=== PATIENT | female | born 1950 | race Caucasian/White ===

== ENCOUNTER → 2016-11-07 | Outpatient (CLI) | payer MEDICARE, MEDICAID ==
[~2016-11-07] MED LIST: ASPIRIN EC81 MG PO; CELEBREX200 MG PO; CELEXA DPS20 MG PO; COLACE-DPS100 MG PO; DESYREL-DPS50 MG PO; DULCOLAX-DPS10 MG PR; DULCOLAX-DPS5 MG PO; FEOSOL-DPS325 MG PO; FLEXERIL-DPS10 MG PO; MAALOX DPS30 ML PO; MILK OF MAGNESI10 ML PO; MIRALAX PACKET17 GM PO; NEURONTIN DPS100 MG PO; OXY IR DPS5 MG PO; SENOKOT S1 TAB PO; TOPROL XL25 MG PO; TYLENOL DPS325 MG PO; ULTRAM DPS50 MG PO; VITAMIN D1000 UNI1 PO; XARELTO10 MG PO
== END | disposition home or self-care (01) ==
LOC: PTH.S 10:29
DX: Z01.818 Encounter for other preprocedural examination (principal); I10 Essential (primary) hypertension

== ENCOUNTER → 2016-11-11 | Outpatient (CLI) | payer MEDICARE, MEDICAID ==
--- NOTE | ~2016-11-11 | CST ---
Cardiac Perfusion Imaging Demographics Patient Name CHRIS Benavides Gender Female Patient Number [id number] Race Visit Number [id number] Ethnicity Corporate ID Room Number Accession Number [id number] Height 64 inches Date of 1950 Weight 170 pounds Age 66 year(s) BSA 1.83 m Referring Physician Ignacio HUNT BMI 29.18 kg/m Interpreting Physician [facility] Jeremy Zamora Date of study 11/11/2016 King Khris Vu MD Supervising MD/MLP King Khris SANCHEZ Technologist Katia Juarez Ordering Physician [facility] Carly PAC Stress chemistry quality control technician Stress ECG Reading [facility] Nurse Chaim Evans Physician King Khris Powers The procedure was explained in detail to the patient. Risks, complications and alternative treatments were reviewed. Written consent was obtained. Medications Reviewed with Patient prior to Procedure. Procedure Procedure Type: Nuclear Stress Test:Cardiac Study SF Procedure Start time: 11/11/2016 07:45 Indications: Pre surgical clearance and Chest pain. Risk Factors The patient risk factors include:hypertension and prior GA . Conclusions Summary Perfusion Images: The overall quality of the study is good. Left ventricular cavity is noted to be normal on the stress and normal on the rest images. There is no evidence of abnormal lung activity. The right ventricle is not visualized an cannot be assessed. Stress SPECT images reveal a medium sized area of moderate decreased isotope uptake involving the entire inferior wall and apex of the left ventricle. . Rest SPECT images reveal a medium sized area of moderate decreased isotope uptake of the entire inferior wall and apex . Gated SPECT imaging reveals normal thickening and normal wall motion. Overall left ventricular ejection fraction was calculated to be normal at 51%. Impression ECG portion of the stress test is clinically negative for ischemia by diagnostic criteria. Myocardial perfusion imaging is moderately abnormal. The images reveal a fixed defect in the entire inferior wall and apex consistent with old infarct vs. attenuation. Overall left ventricular systolic function was normal. This is a low risk stress test. There are no previous studies for comparison . Stress Protocols Resting ECG Normal sinus rhythm. Nonspecific ST-T wave changes. Resting HR:68 bpm Resting BP:150/74 mmHg Stress Protocol:Pharmacologic Predicted HR: 154 bpm Test duration: 06:00 min Reason for termination:Infusion complete ECG Findings Normal sinus rhythm. Non specific T-wave changes. Symptoms No symptoms with Lexiscan infusion. Complications Procedure complication: None. Stress Interpretation Appropriate hemodynamic response to Lexiscan. No significant ST-T wave changes with Lexiscan. ECG portion is negative for ischemia by diagnostic criteria. Imaging Results Summed scores - Summed stress score: 11 - Summed rest score: 5 - Summed difference score: 6 Stress ejection Ejection fraction:51 % EDV :119 ml ESV :58 ml Stroke volume :61 ml LV mass :139 gr Imaging Protocols Rest Stress Isotope:Tc99m Myoview IV Isotope: Tc99m Myoview IV Isotope dose:10.5 mCi Isotope dose:31.8 mCi Date:11/11/2016 07:00 Date:11/11/2016 07:45 Technique: SPECT Technique: Gated Supine SPECT Supine Scan Time:30 minutes post injection Scan Time:45-60 minutes post injection Procedure Medications - Regadenoson (Lexiscan) 0.4 mg IV over 10-15 sec. I.V. 0.4 mg. Medications administered per verbal order and read back to physician prior to administration. Medical History Admission Data Admission date: 11/11/2016 Admission Time: 06:43 Hospital Status: Outpatient. Signatures
== END | disposition home or self-care (01) ==
LOC: CARD 06:43
DX: R07.9 Chest pain, unspecified (principal); R94.39 Abnormal result of other cardiovascular function study

== ENCOUNTER 2016-11-14 05:41 | Inpatient (IN) | payer MEDICARE, MEDICAID ==
[~2016-11-14] VITALS: Ht 167.6 cm; Wt 774.5 kg
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
[2016-11-18] MEDS ORDERED: ASPIRIN EC81 MG PO (10:01)
[2016-11-18] MEDS ORDERED: DESYREL-DPS50 MG PO ×2 (10:02→10:07)
[2016-11-18] MEDS ORDERED: CELEBREX200 MG PO (10:02)
[2016-11-18] MEDS ORDERED: MIRALAX PACKET17 GM PO (10:02)
[2016-11-18] MEDS ORDERED: CELEXA DPS20 MG PO (10:02)
[2016-11-18] MEDS ORDERED: NEURONTIN DPS100 MG PO ×2 (10:02)
[2016-11-18] MEDS ORDERED: TYLENOL DPS325 MG PO (10:03)
[2016-11-18] MEDS ORDERED: SENOKOT S1 TAB PO (10:03)
[2016-11-18] MEDS ORDERED: ULTRAM DPS50 MG PO (10:03)
[2016-11-18] MEDS ORDERED: XARELTO10 MG PO (10:04)
[2016-11-18] MEDS ORDERED: VITAMIN D1000 UNI1 PO (10:04)
[2016-11-18] MEDS ORDERED: COLACE-DPS100 MG PO (10:04)
[2016-11-18] MEDS ORDERED: MAALOX DPS30 ML PO (10:05)
[2016-11-18] MEDS ORDERED: DULCOLAX-DPS5 MG PO (10:05)
[2016-11-18] MEDS ORDERED: FLEXERIL-DPS10 MG PO (10:05)
[2016-11-18] MEDS ORDERED: MILK OF MAGNESI10 ML PO (10:05)
[2016-11-18] MEDS ORDERED: OXY IR DPS5 MG PO (10:06)
[2016-11-18] MEDS ORDERED: DULCOLAX-DPS10 MG PR (10:06)
[2016-11-18] MEDS ORDERED: TOPROL XL25 MG PO (10:06)
[2016-11-18] MEDS ORDERED: FEOSOL-DPS325 MG PO (10:08)
--- NOTE | 2016-11-22 12:25 | OR ---
ADMIT: 11/14/2016 RM/LOC: 533 [facility] MR#: [id number] [address] [place], [place] [address] GERALD PEREZ [address] [address] Operative/Delivery Room Report SEX: F AGE: 66 : 1950 SURGERY DATE: 11/14/2016 SURGEON: Orestes Duque MD PREOPERATIVE DIAGNOSIS: Left knee degenerative joint disease. POSTOPERATIVE DIAGNOSIS: Left knee degenerative joint disease. PROCEDURE: Left total knee arthroplasty with intra-articular knee block for postop pain control. CHAINMAN: EDILIA Dunn ANESTHESIA: Spinal converted to general. ESTIMATED BLOOD LOSS: Less than 50 mL. TOTAL TOURNIQUET TIME: 83 minutes. COMPLICATIONS: None. CONDITION: Stable to recovery room. IMPLANTS USED: We used a DePuy Sigma knee. A size 4 femoral component, a size 4 tibial tray, a 41 mm patellar button, and a 10 mm tibial insert. We used two batches of regular set cement. INDICATIONS: The patient is a 66-year-old female with longstanding problems with her left knee. She has had multiple surgeries done, sounds like by Dr. Augustine in the past. She said one was done for ligament, one for cartilage, and one was exploratory. Recently her knee pain was significantly interfering with her daily activities. She gets swelling in the knee and they have been taking some fluid off her knee periodically. She does take some aspirin and this really has not helped much any more. She has had injections in the past as well. At this time, she would like to proceed with a left total knee arthroplasty. We did discuss the procedure as well as risks and benefits with her at length. She did wish to proceed with this. PROCEDURE IN DETAIL: After informed consent was obtained, the patient was taken to the operating room, placed on the operating table in supine position. A spinal anesthetic was administered. After adequate spinal anesthesia, a tourniquet was placed on left upper thigh and left lower extremity was prepped and draped in usual sterile fashion. We then began our midline incision. She began to move in kind of scorn. She was feeling things, and I then converted her to general. Once she had adequate anesthesia, we then continued with the case making a midline incision through the skin and subcutaneous tissues, making a bit of a medial flap. She had multiple scars and incisions about the knee from her previous surgeries. We tried to make a little of a medial flap as possible. She was noted to have some old Ethibond sutures in her medial ADMIT: 11/14/2016 RM/LOC: 533 [facility] MR#: [id number] [address] [address] GERALD PEREZ [address] [place] [address] Operative/Delivery Room Report SEX: F AGE: 66 : 1950 parapatellar region which we removed at this time. We then made a medial parapatellar incision. Once this was completed, attention was directed proximally where we excised the suprapatellar synovitis and fat pad here. We then directed our attention distally where we did a medial release off the proximal tibia using Bovie electrocautery as well as a large elevator. Once this was completed, the patella was everted, knee flexed. We then excised the infrapatellar fat pad. Once this was completed, we placed the medial lateral retractors. We placed the drill for the intramedullary guide, and then we placed intramedullary guide into the distal femur. This was set at 5 degrees of valgus to remove 13 mm of distal femoral bone. We then pinned this into position and made our distal femoral cut. Once this was completed, we placed the tibial guide. Once this was in good position, we then pinned this and made our tibial cut. The tibial bone was then removed. The knee was placed into full extension. We placed a 10 mm extension block with good full extension and good stability with this. We then placed a line construction superintendent and excised the remainder of the meniscus here and other soft tissues. Once things were well cleaned out, we then removed some osteophytes from the patella. We using the patellar cutting guide set to remove 9.5 mm. Everted the patella and made our patellar cut. We then sized this to a size 41, placed the 41 template on the patella and drilled the three lug holes. We then took a 41 mm patellar button and placed this on the patella everting the patella once again. The knee was then flexed back up. Medial and lateral retractors were placed. The femoral sizing guide was then placed at 3 degrees external rotation and this was pinned, and the femur sized to a size 4. We removed the sizing guide. We placed our size 4 cutting block, moved this 2 mm anteriorly and pinned this into position. We then made our anterior, posterior, and chamfer cuts. Once this was completed, we then took the size 4 box cutting guide pinned this and made our box cut. Once this was completed, we then trialed the knee with a size 4 femoral component, a size 4 tibial tray, 10 mm insert, and 41 mm patellar button. There was good full extension, good stability, excellent flexion past 120 degrees, good patellar tracking. Once this was completed, the lugs were then drilled for the femoral component. The trial components were then removed. Medial, lateral, and popliteal retractors were then placed. The proximal tibia was exposed. We sized this to a size 4 and pinned our size 4 tibial tray in position, and then prepared this using the reamer followed by the keel punch. Once we performed this, there was noted to be a posterior medial cyst in the tibia and we then used a curette to clean this out thoroughly. Once this was completed, the components were then opened on the back table to include a size 4 femoral component, a size 4 fixed bearing tibial tray, and a 41 mm patellar button. We then put the knee in full extension once again, placed a line construction superintendent, copiously irrigated the knee, and injected the posterior medial and lateral capsules with our postoperative pain control injection. Once this was completed, the knee was copiously irrigated. Once again, knee was flexed back up. Medial, lateral, and popliteal retractors were placed. The bony ends were then copiously irrigated with pulse lavage while the cement was being mixed on the back table. Once the bony ends were cleaned and dried and the cement was ready, we placed this into the tibia finger packing this down into the small cyst as well as into the ADMIT: 11/14/2016 RM/LOC: 533 [facility] MR#: [id number] [address] [address] GERALD PEREZ [address] [place] [address] Operative/Delivery Room Report SEX: F AGE: 66 : 1950 keel hole. We then placed the tibial component, impacted this into position removing the excess cement using a Mcconnell elevator. We then placed cement onto the distal femur packing this into the cancellous bone with 2 small dots of cement on the posterior condyles of the component. The femoral component was then placed impacted into position. Once again, the excess cement was removed using a Mcconnell elevator. We then placed a size 10 trial tibial liner into the tibial tray, put the knee in full extension, the heel on a pad on the table and allowed the cement to cure. We also placed cement on the patella, placed the patellar button, clamped this into position removing the excess cement using a Mcconnell elevator. The knee was then copiously irrigated with fluid while the cement cured. While the cement was curing, we injected additional postoperative pain control injection into the quadriceps tendon, periosteum. Once this was completed, the cement was cured. We trialed the knee once again, good full extension, flexion past 120 degrees, good stability, and good patellar tracking. We then elected to use a size 10 tibial insert. The trial insert was removed. Tibial tray was copiously irrigated. The permanent insert was then placed. Using a mallet and impactor, we locked this into the tibial tray. Took the knee through a range of motion once again excellent range of motion, good stability, good patellar tracking. We then copiously irrigated the knee once again. We placed a medium Hemovac drain. We then closed the medial parapatellar incision using #1 Vicryl in a [id number] fashion. Subcutaneous tissues were injected with the remainder of the injection. We then closed subcutaneous tissues using 2-0 Vicryl in simple interrupted fashion. The skin with skin sita. A sterile compressive dressing was then applied consisting of Xeroform, plain gauze, ABDs, Webril, and Wil wrap from the foot to the thigh. The patient was then transferred to the recovery room in stable condition. Tourniquet deflated for total tourniquet time approximately 83 minutes. Orestes Duque MD/ kalli JOB #: [id number] CC: Orestes Duque, Attending Physician Jeanna Chaudhary, Family Physician
--- NOTE | 2016-12-15 12:09 | DS ---
ADMIT: 11/14/2016 RM/LOC: 533 [facility] MR#: [id number] [address] [facility] [address] [place], [place] [address] GERALD PEREZ [address] [address] General Discharge Summary SEX: F AGE: 66 : 1950 ADMISSION DATE: 11/14/2016 DISCHARGE DATE: 11/17/2016 REASON FOR ADMISSION: Elective left total knee arthroplasty after failing conservative care. PREOPERATIVE DIAGNOSIS: Left knee degenerative joint disease. POSTOPERATIVE DIAGNOSIS: Left knee degenerative joint disease. SURGEON: Orestes Duque MD. PRESIDENT [place]: Lauren Rogers PA-C. PROCEDURE: Left total knee arthroplasty. ANESTHESIA: Spinal converted to general. ESTIMATED BLOOD LOSS: Less than 50 mL. COMPLICATIONS: None. ACTIVE MEDICAL PROBLEMS: Atypical chest pain, hypertension, primary osteoarthritis of the left knee, and transient ischemic attack. HOSPITAL COURSE: The patient was admitted on 11/14/2016, for elective left total knee arthroplasty done by Dr. Duque without any complications. The patient tolerated the procedure well. Postoperatively, she did suffer from some mild hypotension, her blood pressure dropped to 82/48. She was then treated with 250 mL bolus of lactated Ringer's and an increase of IV fluids, 225 mL an hour by Dr. Chaudhary. Her hypotension was then resolved and she remained stable until discharge. She did also suffer from some mild acute blood-loss anemia as expected, her hemoglobin dropped to 7.9, on 11/17/2016, but she remained hemodynamically stable and did not require blood transfusion. By postoperative day #3, she was participating well with physical therapy and was safe and ready for discharge with plans for outpatient physical therapy. She was then transferred to [facility]. DISCHARGE MEDICATIONS: 1. Aspirin 81 mg daily. 2. Celebrex 200 mg twice a day. 3. Celexa 20 mg at night. 4. Desyrel 50 mg at night. 5. MiraLax 17 g daily. 6. Neurontin 100 mg every morning. 7. Neurontin 100 mg two tablets at night. 8. Senokot 1 tablet twice a day. 9. Tylenol 325 mg two tablets every 6 hours. 10.Ultram 50 mg one to two tablets every 6 hours as needed for pain. ADMIT: 11/14/2016 RM/LOC: 533 [facility] MR#: [id number] [address] [facility] [address] [place], [place] [address] GERALD PEREZ [address] [facility] [address] [place] [address] General Discharge Summary SEX: F AGE: 66 : 1950 11.Vitamin D daily. 12.Xarelto 10 mg every 24 hours. 13.Colace 100 mg twice a day as needed. 14.Dulcolax 5 mg twice a day as needed. 15.Flexeril 10 mg three times a day as needed. 16.Maalox 30 mL every 6 hours as needed. 17.Milk of magnesia 10 mL daily as needed. 18.Oxycodone IR 5 mg one to two tablets every 4 hours as needed for breakthrough pain. DISCHARGE INSTRUCTIONS: The [facility] with plans for outpatient physical therapy per total knee arthroplasty protocol. Follow up in the Orthopedic office in 2 weeks for wound check, in 6 weeks with x-ray. Follow up with primary care as directed. EDILIA Dunn / Orestes Duque MD / kalli JOB #: [id number] CC: Orestes Duque MD, Attending Physician Jeanna Chaudhary MD, Family Physician
== END 2016-11-17 12:00 | DRG 470 ==
LOC: WOR 05:41 → 5MS 05:41
PROVIDERS: ADMIT Orthopaedic Surgery
PROC: 0SRD0J9 Replacement of Left Knee Joint with Synthetic Substitute, Cemented, Open Approach (ICD-10-PCS; principal; 2016-11-14)
DX: M17.12 Unilateral primary osteoarthritis, left knee (principal); I95.9 Hypotension, unspecified; D62 Acute posthemorrhagic anemia; I10 Essential (primary) hypertension; G62.9 Polyneuropathy, unspecified; E53.8 Deficiency of other specified B group vitamins; I67.9 Cerebrovascular disease, unspecified; F41.8 Other specified anxiety disorders; Z86.73 Personal history of transient ischemic attack (TIA), and cerebral infarction without residual deficits; Z79.82 Long term (current) use of aspirin; Z86.718 Personal history of other venous thrombosis and embolism; Z82.49 Family history of ischemic heart disease and other diseases of the circulatory system

== ENCOUNTER 2017-03-23 18:44 | Emergency (ER) | payer MEDICARE, MEDICAID, OTHER ==
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
== END 2017-03-23 19:40 | disposition home or self-care (01) ==
LOC: ER 18:44
DX: S39.012A Strain of muscle, fascia and tendon of lower back, initial encounter (principal); I10 Essential (primary) hypertension; G40.909 Epilepsy, unspecified, not intractable, without status epilepticus; Z98.890 Other specified postprocedural states; Z79.82 Long term (current) use of aspirin; Z79.899 Other long term (current) drug therapy; V43.62XA Car passenger injured in collision with other type car in traffic accident, initial encounter